=== PATIENT | male | born 2000 ===

== ENCOUNTER 2024-02-11 18:46 | Emergency (ER) | payer OTHER, MEDICAID ==
[2024-02-11] MEDS: Morphine 4 MG/ML Syringe IVPUSH ONE ×3 (18:52→21:36)
[2024-02-11 19:02] LABS: BASOPHILS ABSOLUTE AUTO 0.03 K/uL (0.00-0.20); BASOPHILS PERCENT AUTO 0.3 % (0.0-1.0); EOSINOPHILS ABSOLUTE AUTO 0.11 K/uL (0.00-0.45); EOSINOPHILS PERCENT AUTO 1.2 % (0.0-6.0); HEMATOCRIT 43.9 % (42.0-52.0); HEMOGLOBIN 15.4 g/dL (14.0-18.0); IMMATURE GRAN ABSOLUTE AUTO 0.07 K/uL (0.00-0.05); IMMATURE GRAN PERCENT AUTO 0.8 % (0.0-0.4); LYMPHOCYTES ABSOLUTE AUTO 2.21 K/uL (1.00-4.80); LYMPHOCYTES PERCENT AUTO 23.8 % (24.0-44.0); MEAN CORPUSCULAR HGB CONC 35.1 g/dL (32.0-36.0); MEAN CORPUSCULAR VOLUME 85.6 fL (83.0-99.0); MONOCYTES ABSOLUTE AUTO 0.67 K/uL (0.00-0.80); MONOCYTES PERCENT AUTO 7.2 % (0.0-8.0); NEUTROPHILS PERCENT AUTO 66.7 % (41.0-71.0); PLATELET COUNT,PLT 181 K/uL (150-400); RED BLOOD CELL COUNT 5.13 M/uL (4.52-5.90); WHITE BLOOD CELL COUNT,WBC 9.29 K/uL (3.9-11.3)
[2024-02-11 19:17] LABS: INR 0.96 (0.86-1.11)
[2024-02-11 19:27] LABS: A/G RATIO 1.2 (0.9-1.6); ALANINE AMINOTRANSFERASE,ALT 84 IU/L (14-63); ALBUMIN 3.8 g/dL (3.4-5.0); ALKALINE PHOSPHATASE 70 U/L (46-116); ASPARTATE AMNIOTRANSFERASE,AST 37 IU/L (15-37); BILIRUBIN TOTAL 0.6 mg/dL (0.2-1.0); BLOOD UREA NITROGEN,BUN 19 mg/dL (7.0-18.0); CALCIUM 8.7 mg/dL (8.5-10.1); CARBON DIOXIDE,CO2 26.6 mmol/L (21.0-32.0); CHLORIDE,CL 104 mmol/L (98-107); CREATININE 1.2 mg/dL (0.8-1.3); ETHANOL BLOOD MEDICAL <3 mg/dL; GLUCOSE RANDOM 131 mg/dL (74-106); POTASSIUM,K 3.7 mmol/L (3.5-5.1); PROTEIN TOTAL,TP 7.1 g/dL (6.4-8.2); SODIUM,NA 140 mmol/L (136-148)
[2024-02-11 19:28] LABS: ESTIMATED GFR 88 mL/min (>60)
[2024-02-11] MEDS: Sodium Chloride 0.9% 1,000 ML IV ONE (19:59)
[2024-02-11] MEDS: Morphine 4 MG/ML Syringe ONE (20:00)
[2024-02-11] MEDS: Sodium Chloride 0.9% 10 ML Syringe FLUSH PRN (20:01)
[2024-02-11] MEDS: Sodium Chloride 0.9% 2.5 ML Syringe FLUSH PRN (20:01)
[2024-02-11] MEDS: Iopamidol 755 MG/ML 500 ML Multipack Bottle IVPUSH STA (20:05)
[2024-02-11 22:35] LABS: APPEARANCE,URINE CLEAR; BILIRUBIN,URINE NEGATIVE (NEGATIVE); COLOR,URINE YELLOW; GLUCOSE,URINE NEGATIVE (NEGATIVE); KETONES,URINE NEGATIVE (NEGATIVE); LEUKOCYTE ESTERASE,URINE NEGATIVE (NEGATIVE); NITRITE,URINE NEGATIVE (NEGATIVE); OCCULT BLOOD,URINE NEGATIVE (NEGATIVE); PH,URINE 5.5 (5.0-8.0); PROTEIN,URINE NEGATIVE (NEGATIVE); UROBILINOGEN,URINE 0.2 EU/dL (<2.0)
[2024-02-11 22:45] LABS: AMPHETAMINES SCREEN, URINE NEGATIVE (CUTOFF=500); BARBITURATE SCREEN,URINE NEGATIVE (CUTOFF=200); BENZODIAZEPINES SCREEN,URINE NEGATIVE (CUTOFF=150); BUPRENORPHINE SCREEN,URINE NEGATIVE (CUTOFF=10); METHADONE SCREEN, URINE NEGATIVE (CUTOFF=200); METHAMPHETAMINES SCREEN, URINE NEGATIVE (CUTOFF=500); OXYCODONE SCREEN,URINE NEGATIVE (CUT0FF=100); PCP SCREEN,URINE NEGATIVE (CUTOFF=25); THC SCREEN,URINE 20 NG/ML PRESUMPTIVE POSITIVE (CUTOFF=50)
[2024-02-12] MEDS: Morphine 4 MG/ML Syringe IVPUSH ONE (00:22)
== END 2024-02-12 00:44 ==
LOC: MW.ED 18:46
DX: S72.321A Displaced transverse fracture of shaft of right femur, initial encounter for closed fracture (principal); Z79.899 Other long term (current) drug therapy; V49.40XA Driver injured in collision with unspecified motor vehicles in traffic accident, initial encounter
CPT/HCPCS: 29505; 36415; 70450; 71275; 72125; 73706; 74174; 80053; 80305; 80307; 81003; 85025; 85610; 96374; 96376; 99285; J2270; J3490; J7030; Q9967

== ENCOUNTER 2024-02-19 14:59 | Emergency (ER) | payer MEDICAID ==
[2024-02-19] MEDS: Ondansetron 4 MG/2 ML SDV IVPUSH STA (16:07)
[2024-02-19] MEDS: Morphine 4 MG/ML Syringe IVPUSH STA (16:07)
[2024-02-19] MEDS: Sodium Chloride 0.9% 1,000 ML IV STA (16:07)
[2024-02-19 16:34] LABS: INR 1.12 (0.86-1.11)
[2024-02-19 16:52] LABS: PRO B-TYPE NATRIUR PEPT,BNPPRO < 5 pg/mL (0-125)
[2024-02-19] MEDS: Iopamidol 755 MG/ML 500 ML Multipack Bottle IVPUSH STA (17:11)
== END 2024-02-19 19:04 | disposition home or self-care (01) ==
LOC: MW.ED 14:59
DX: R00.0 Tachycardia, unspecified (principal); G89.18 Other acute postprocedural pain; Z75.8 Other problems related to medical facilities and other health care; I10 Essential (primary) hypertension; Z79.899 Other long term (current) drug therapy; S72.91XA Unspecified fracture of right femur, initial encounter for closed fracture
CPT/HCPCS: 36415; 71275; 73701; 80053; 83880; 84484; 85025; 85610; 85652; 86141; 93005; 93971; 96361; 96374; 96375; 99285; J2270; J2405; J7030; Q9967; 93010; 99283